=== PATIENT | female | born 2000 | race Caucasian/White ===

== ENCOUNTER 2023-02-03 19:02 | Emergency (ER) | payer MEDICAID ==
[~2023-02-03] VITALS: Ht 162.6 cm; Wt 90.8 kg
[~2023-02-03 19:02] MED LIST: ACET-1158 PO; SULF800T7 PO
[2023-02-03] MEDS ORDERED: ONDANSETRON ODT 4 MG TAB PO ONE (19:45)
[2023-02-03 20:25] LABS: Basophils # (auto) 0 10 ^3/uL (0-0.2); Basophils % (auto) 0.5 % (0.0-2.0); Eosinophils # (auto) 0.1 10 ^3/uL (0-0.8); Eosinophils % (auto) 0.9 % (0.0-7.0); Hematocrit 42.2 % (36.0-46.0); Hemoglobin 13.9 g/dL (12.2-16.2); Lymphocytes % (auto) 22.9 % (10.0-50.0); Mean Corpuscular Hemoglobin 29.7 pg (28.0-32.0); Mean Corpuscular Hgb Conc. 32.9 g/dL (32.0-36.0); Mean Corpuscular Volume 90.5 fL (80.0-100.0); Monocytes # (auto) 0.5 10 ^3/uL (0-1.3); Monocytes % (auto) 5.9 % (0.0-12.0); Neutrophils % (auto) 69.8 % (37.0-80.0); Nucleated Red Blood Cells % 0.1 %; Red Blood Cells 4.66 10^6/uL (4.0-5.20); Red Cell Distribution Width 15.2 % (11.8-14.3); White Blood Cell 8.5 10^3/uL (4.4-10.8)
[2023-02-03 20:41] LABS: Albumin 3.7 g/dL (3.4-5.0); BUN/Creatinine Ratio 15.2 (10.0-20.0); Calcium 9.3 mg/dL (8.5-10.1); Potassium 3.9 mmol/L (3.5-5.1)
[2023-02-03 20:44] LABS: Bilirubin, Total 0.5 mg/dL (0.2-1.0); Total Protein 7.5 g/dL (6.4-8.2)
[2023-02-04 00:30] VITALS: BP 121/65
== END 2023-02-04 23:48 | disposition still patient (30) ==
LOC: ER 19:02
DX: R10.30 Lower abdominal pain, unspecified (principal); R10.2 Pelvic and perineal pain; Z88.0 Allergy status to penicillin; Z88.6 Allergy status to analgesic agent; Z88.2 Allergy status to sulfonamides
CPT/HCPCS: 36415; 74176; 80053; 83690; 84702; 85025; 99284; Q0162

== ENCOUNTER 2025-02-17 17:21 | Emergency (ER) | payer MEDICAID ==
[~2025-02-17] VITALS: Ht 154.9 cm; Wt 90.4 kg
[~2025-02-17 17:21] MED LIST changes: -ACET-1158 PO; +ACET500T58 PO; +SULF800T23 PO; -SULF800T7 PO
[2025-02-17 18:49] LABS: Basophils # (auto) 0 10 ^3/uL (0-0.2); Basophils % (auto) 0.4 % (0.0-2.0); Eosinophils # (auto) 0 10 ^3/uL (0-0.8); Eosinophils % (auto) 0.5 % (0.0-7.0); Hematocrit 37.6 % (36.0-46.0); Hemoglobin 12.6 g/dL (12.2-16.2); Lymphocytes # (auto) 1.5 10 ^3/uL (0.4-5.4); Lymphocytes % (auto) 18.5 % (10.0-50.0); Mean Corpuscular Hemoglobin 29.8 pg (28.0-32.0); Mean Corpuscular Hgb Conc. 33.5 g/dL (32.0-36.0); Mean Corpuscular Volume 88.9 fL (80.0-100.0); Monocytes # (auto) 0.4 10 ^3/uL (0-1.3); Monocytes % (auto) 5.6 % (0.0-12.0); Neutrophils # (auto) 5.9 10 ^3/uL (1.6-8.6); Nucleated Red Blood Cells % 0.1 %; Platelet Count (auto) 489 10^3/uL (140-450); Red Blood Cells 4.23 10^6/uL (4.0-5.20); Red Cell Distribution Width 15.1 % (11.8-14.3); White Blood Cell 7.9 10^3/uL (4.4-10.8)
[2025-02-17 19:00] LABS: Urine Bacteria None Seen /hpf (None Seen)
[2025-02-17 19:01] LABS: Anion Gap 9 (5-15); Carbon Dioxide 27 mmol/L (20-31); Chloride 102 mmol/L (98-107); Potassium 4.4 mmol/L (3.5-5.1); Sodium 138 mmol/L (136-145)
[2025-02-17 19:07] LABS: Blood Urea Nitrogen 12 mg/dL (9-23); Glucose 79 mg/dL (74-106)
[2025-02-17 19:08] LABS: Calcium 10.8 mg/dL (8.7-10.4)
[2025-02-17 19:12] LABS: Urine Blood Negative /uL (Negative); Urine Clarity Clear (Clear); Urine Color Yellow (Yellow); Urine Protein, UAD Negative (Negative); Urine Specific Gravity 1.026 (1.001-1.035); Urine Squamous Epithelial Cell FEW /hpf (<5); Urine Urobilinogen Normal (Negative); Urine WBC 1 /HPF (0-5); Urine pH 6.5 (5.0-9.0)
--- NOTE | 2025-02-17 19:28 | DVH ---
INDICATION: Bilateral pelvic pain with left greater than right TECHNIQUE: Multiple real-time grayscale transabdominal sonographic images along with color and duplex Doppler of the uterus and ovaries were obtained. COMPARISON: None FINDINGS: The uterus measures 9.1 x 5.9 by 4.6 cm cm. The endometrial stripe measures 4.5 mm. The right ovary measures 3.6 x 2.4 x 1.9 cm. Right ovarian volume is 8.9 cc The left ovary measures 3.3 x 2.2 x 2.5 cm. Renal volume is 9.6 cc Subsequent color and duplex Doppler interrogation of the ovaries demonstrated symmetric vascular flow to both ovaries, though this does not exclude the possibility of torsion due to the dual blood suppl y. IMPRESSION: 1. Grossly unremarkable pelvic ultrasound. HS:Y
[2025-02-17] MEDS ORDERED: ACET500T58 PO (19:50)
--- NOTE | 2025-02-17 19:51 | ED.PDOC ---
General HPI Comments This patient is a pleasant but severely morbidly obese 45-year-old female who arrives the ED today for evaluation of central pelvic and left-sided pelvic pain that began four days ago and has continued. Patient states the pain has been intermittently sharp and crampy. Patient denies any current menses. Patient denies any history of ovarian cysts or uterine fibroids. Vital signs were stable on arrival. Chief Complaint: Abdominal Pain Time Seen by MD: 18:01 Reviewed notes: Nurses Notes Allergies: Coded Allergies: Penicillins (Verified Allergy, Unknown, 08/26/22) Home Meds Active Scripts Acetaminophen (Acetaminophen) 500 Mg Tab, 500 MG PO QIDP, #30 TAB 0 Refills Prov:SOHAN RDZ 08/26/22 Sulfamethoxazole W/Trimethopri (Trimethoprim/Sulfamethoxa) 1 Tab Tab, 1 TAB PO BID for 7 Days, #14 TAB 0 Refills Prov:SOHAN RDZ 08/26/22 Information Source: Patient Mode of Arrival: Ambulatory Severity: Moderate Timing: Days Duration: Since onset, Intermittent Prehospital treatment: None Onset: Spontaneous Symptoms: None History of: None Location: Suprapubic, Abdomen, Other (Central and left-sided lower pelvis) associated signs and symptoms: Abdominal Pain Past Medical History PAST MEDICAL HISTORY: Denies Surgical History: Denies all surgeries BEDSPREAD SEAMER History: No Pertinent BEDSPREAD SEAMER History Family History Family History: Reviewed,noncontributory to illness Social History Smoker: Non-Smoker, Other Alcohol: Occasionally Drugs: Denies Drug Use Lives In: Home Constitutional: denies: chills, diaphoresis, fatigue, fever, malaise, sweats, weakness, others EENTM: denies: blurred vision, double vision, ear bleeding, ear discharge, ear drainage, ear pain, ear ringing, eye pain, eye redness, hearing loss, mouth [place] n, mouth swelling, nasal discharge, nose bleeding, nose congestion, nose pain, photophobia, tearing, throat pain, throat swelling, voice changes, others Respiratory: denies: cough, hemoptysis, orthopnea, SOB at rest, shortness of breath, SOB with excertion, stridor, wheezing, others Cardiovascular: denies: chest pain, dizzy spells, diaphoresis, Dyspnea on exertion, edema, irregular heart beat, left arm pain, lightheadedness, palpitations, PND, syncope, others Gastrointestinal: reports: abdominal pain; denies: abdomen distended, blood streaked bowels, constipated, diarrhea, dysphagia, difficulty swallowing, hematemesis, melena, nausea, poor appetite, poor fluid intake, rectal bleeding, rectal pain, vomiting, others Genitourinary: denies: abnormal vagina bleeding, burning, dyspareunia, dysuria, flank pain, frequency, hematuria, incontinence, pain, , vagina discharge, urgency, others Neurological: denies: dizziness, fainting, headache, left sided numbness, left sided weakness, numbness, paresthesia, pre-existing deficit, right sided numbness, right sided weakness, seizure, speech problems, tingling, tremors, weakness, others Musculoskeletal: denies: back pain, gout, joint pain, joint swelling, muscle pain, muscle stiffness, neck pain, others Integumetry: denies: bruises, change in color, change in hair/nails, dryness, laceration, lesions, lumps, rash, wounds, others Allergic/Immunocompromised: denies: Difficulty Healing, Frequent Infections, Hives, Itching, others Hematologic/Lymphatic: denies: anemia, blood clots, easy bleeding, easy bruisin g, swollen glands, others Endocrine: denies: excessive hunger, excessive sweating, excessive thirst, excessive urination, flushing, intolerance to cold, intolerance to heat, unexplained weight gain, unexplained weight loss, others Psychiatric: denies: anxiety, bipolar disorder, depression, hopeless, panic disorder, schizophrenia, sleepless, suicidal, others Physical Exam General Appearance: Mild Distress (Moderate distress at time of evaluation due to pelvic pain concerns. Patient declined any medication while at the facility.), Normal HEENT: Normal ENT Inspection, Pharynx Normal, TMs Normal Neck: Full Range of Motion, Non-Tender, Normal, Normal Inspection Respiratory: Chest Non-Tender, Lungs Clear, No Accessory Muscle Use, No Respiratory Distress, Normal Breath Sounds Cardiovascular: No Edema, No JVD, No Murmur, No Gallop, Normal Peripheral Pul ses, Regular Rate/Rhythm Breast Exam: Deferred Gastrointestinal: Other (Diffuse bilateral lower abdominal/pelvic tenderness to palpation extending towards the left region. No definitive ovarian concerns. Difficult to assess due to body habitus.) Genitalia: Deferred Pelvic: Deferred Rectal: Deferred Extremities: No calf tenderness, Normal capillary refill, Normal inspection, N ormal range of motion, Non-tender, No pedal edema Neurologic: Alert, No Motor Deficits, Normal Affect, Normal Mood, No Sensory Deficits Cerebellar Function: Normal Reflexes: Normal Skin: Dry, Normal Color, Warm Lymphatic: No Adenopathy Was a procedure done? Was a procedure done?: No Differential Diagnosis Kidney stone (Female): N/A Urinary Problem (Female): Other (Electrolyte abnormality, sepsis, UTI, constipation, ovarian cyst, fibroids) X-Ray, Labs, Meds, VS Vital Signs Date Time Temp Pulse Resp B/P (MAP) Pulse Ox O2 Delivery O2 Flow Rate FiO2 02/17/25 18:03 97.7 86 18 93/31 (51) 95 97.7 Lab Test 02/17/25 19:00 02/17/25 18:30 Range/Units Urine Color Yellow Yellow Urine Clarity Clear Clear Urine pH 6.5 5.0-9.0 Urine Specific [place] 1.026 1.001-1.035 Urine Protein Negative Negative Urine Ketones Negative Negative Urine Blood Negative Negative /uL Urine Nitrite Negative Negative Urine Bilirubin Negative Negative Urine Urobilinogen Normal Negative mg/dL Urine Leukocyte Esterase Negative Negative /uL Urine RBC <1 0 - 4 /hpf Urine Microscopic WBC 1 0-5 /HPF Urine Squamous Epithelial Cells Few <5 /hpf Urine Bacteria None seen None Seen /hpf Urine Glucose Normal Normal mg/dL White Blood Count 7.9 4.4-10.8 10^3/uL Red Blood Count 4.23 4.0-5.20 10^6/uL Hemoglobin 12.6 12.2-16.2 g/dL Hematocrit 37.6 36.0-46.0 % Mean Corpuscular Volume 88.9 80.0-100.0 fL Mean Corpuscular Hemoglobin 29.8 28.0-32.0 pg Mean Corpuscular Hemoglobin Concent 33.5 32.0-36.0 g/dL Red Cell Distribution Width 15.1 H 11.8-14.3 % Platelet Count 489 H 140-450 10^3/uL Mean Platelet Volume 7.2 6.9-10.8 fL Neutrophils (%) (Auto) 75.0 37.0-80.0 % Lymphocytes (%) (Auto) 18.5 10.0-50.0 % Monocytes (%) (Auto) 5.6 0.0-12.0 % Eosinophils (%) (Auto) 0.5 0.0-7.0 % Basophils (%) (Auto) 0.4 0.0-2.0 % Neutrophils # (Auto) 5.9 1.6-8.6 10 ^3/uL Lymphocytes # (Auto) 1.5 0.4-5.4 10 ^3/uL Monocytes # (Auto) 0.4 0-1.3 10 ^3/uL Eosinophils # (Auto) 0 0-0.8 10 ^3/uL Basophils # (Auto) 0 0-0.2 10 ^3/uL Nucleated Red Blood Cells 0.1 % Sodium Level 138 136-145 mmol/L Potassium Level 4.4 3.5-5.1 mmol/L Chloride Level 102 98-107 mmol/L Carbon Dioxide Level 27 20-31 mmol/L Anion Gap 9 5-15 Blood Urea Nitrogen 12 9-23 mg/dL Creatinine 0.80 0.550-1.02 mg/dL Glomerular Filtration Rate Calc 105 >90 mL/min BUN/Creatinine Ratio 15.0 10.0-20.0 Serum Glucose 79 74-106 mg/dL Calcium Level 10.8 H 8.7-10.4 mg/dL X-Ray, Labs, Meds, VS Comment All studies performed in the ED were evaluated by me personally. Laboratories were unremarkable for any acute systemic process. Imaging studies were unremarkable for any pelvic concerns including a rule out of any ovarian cyst or fibroid concerns. Unknown as to the cause of the patient's pain concerns. Advised patient utilize Tylenol and or Motrin as needed for symptomatic relief. Time of 1ST Reevaluation: 19:49 Reevaluation 1ST: Unchanged Consultation: PCP Patient Education/Counseling: Diagnosis, Treatment Family Education/Counseling: Diagnosis, Treatment Departure 1 Departure Time of Disposition: 19:49 Impression: Primary Impression: Abdominal pain of unknown etiology Disposition: HOME / SELF CARE / HOMELESS Condition: Stable Additional Instructions: Advised patient utilize good hydration and healthy nutrition throughout illness event. Pain medication as needed. e-Prescriptions Acetaminophen (Acetaminophen) 500 Mg Tab 500 MG PO Q4HP PRN, #20 TAB Prov: MANUELMARY PAC 02/17/25 Discharged With: Self, Friend Critical Care Note Critical Care Time?: No Stability Stability form required: No Heart Score Heart Score: Heart Score Response (Comments) Value History N/A 0 EKG N/A 0 Age N/A 0 Risk Factors N/A 0 Troponin N/A 0 Total 0 MARY JACKSON PAC Feb 17, 2025 19:50
[2025-02-17 21:15] VITALS: BP 111/45; PULSE 89; RESP 17; TEMP 98; O2SAT 98
== END 2025-02-17 21:30 | disposition home or self-care (01) ==
LOC: ER 17:21
DX: R10.2 Pelvic and perineal pain (principal); Z88.0 Allergy status to penicillin
CPT/HCPCS: 36415; 76856; 80048; 81001; 85025

== ENCOUNTER 2025-08-08 07:04 | Emergency (ER) | payer MEDICAID ==
[~2025-08-08] VITALS: Ht 154.9 cm; Wt 90.4 kg
[2025-08-08 07:10] VITALS: TEMP 99.4
--- NOTE | 2025-08-08 07:57 | ED.PDOC ---
[facility] HPI Comments 25 year old female presents to the ED with a chief compliant of vaginal bleeding onset 1 day. Patient states she took 5 at home tests, were all positive, LMP was around June, P:2, has OBGYN appointment with Dr. Yanez tomorrow. Patient states she began experiencing vaginal spotting yesterday, woke up this morning experiencing cramping as well as heavier vaginal bleeding, with clots. Denies any fall, nausea, vomiting, vaginal discharge, dysuria, fever, chills, headache, dizziness. No other symptoms or modifying factors present at this time. Chief Complaint: Vaginal Bleed Time Seen by MD: 07:45 Reviewed Notes: Medications, Allergies Allergies: Coded Allergies: Penicillins (Verified Allergy, Unknown, 08/26/22) Home Meds Active Scripts Acetaminophen (Acetaminophen) 500 Mg Tab, 500 MG PO Q4HP PRN, #20 TAB Prov:MARY JACKSON 02/17/25 Acetaminophen (Acetaminophen) 500 Mg Tab, 500 MG PO QIDP, #30 TAB 0 Refills Prov:SOHAN RDZ 08/26/22 Sulfamethoxazole W/Trimethopri (Trimethoprim/Sulfamethoxa) 1 Tab Tab, 1 TAB PO BID for 7 Days, #14 TAB 0 Refills Prov:SOHAN RDZ 08/26/22 Information Source: Patient Mode of Arrival: Ambulatory Timing: Days Prehospital treatment: None Severity: Moderate Vaginal Discharge: None Vaginal Lesions: None Bleeding Quality: Bright Red, Clotted Vaginal Mass: None Onset Of Mass/Bleeding: Spontaneous Sexual Activity: Last Consensual Krupp: None Control: None History of: Current Symptoms of Possible : Missed Period Associated Signs and Symptoms: Vaginal Bleeding, Cramping Past Medical History PAST MEDICAL HISTORY: Denies Surgical History: Denies all surgeries INSIDE B2B SALES History: No Pertinent INSIDE B2B SALES History Family History Family History: Reviewed,noncontributory to illness Social History Smoker: Non-Smoker, Other Alcohol: Occasionally Drugs: Denies Drug Use Lives In: Home Constitutional: denies: chills, diaphoresis, fatigue, fever, malaise, sweats, weakness, others EENTM: denies: blurred vision, double vision, ear bleeding, ear discharge, ear drainage, ear pain, ear ringing, eye pain, eye redness, hearing loss, mouth pain, mouth swelling, nasal discharge, nose bleeding, nose congestion, nose pain, photophobia, tearing, throat pain, throat swelling, voice changes, others Respiratory: denies: cough, hemoptysis, orthopnea, SOB at rest, shortness of breath, SOB with excertion, stridor, wheezing, others Cardiovascular: denies: chest pain, dizzy spells, diaphoresis, Dyspnea on exertion, edema, irregular heart beat, left arm pain, lightheadedness, palpitations, PND, syncope, others Gastrointestinal: denies: abdomen distended, abdominal pain, blood streaked bowels, constipated, diarrhea, dysphagia, difficulty swallowing, hematemesis, melena, nausea, poor appetite, poor fluid intake, rectal bleeding, rectal pain, vomiting, others Genitourinary: reports: abnormal vagina bleeding, pain, ; denies: burning, dyspareunia, dysuria, flank pain, frequency, hematuria, incontinence, vagina discharge, urgency, others Neurological: denies: dizziness, fainting, headache, left sided numbness, left sided weakness, numbness, paresthesia, pre-existing deficit, right sided numbness, right sided weakness, seizure, speech problems, tingling, tremors, weakness, others Musculoskeletal: denies: back pain, gout, joint pain, joint swelling, muscle pain, muscle stiffness, neck pain, others Integumetry: denies: bruises, change in color, change in hair/nails, dryness, laceration, lesions, lumps, rash, wounds, others Allergic/Immunocompromised: denies: Difficulty Healing, Frequent Infections, Hives, Itching, others Hematologic/Lymphatic: denies: anemia, blood clots, easy bleeding, easy bruising, swollen glands, others Endocrine: denies: excessive hunger, excessive sweating, excessive thirst, excessive urination, flushing, intolerance to cold, intolerance to heat, unex plained weight gain, unexplained weight loss, others Psychiatric: denies: anxiety, bipolar disorder, depression, hopeless, panic disorder, schizophrenia, sleepless, suicidal, others All Other Systems: Reviewed and Negative Physical Exam General Appearance: Moderate Distress, Normal HEENT: Normal ENT Inspection, Pharynx Normal, TMs Normal Neck: Full Range of Motion, Non-Tender, Normal, Normal Inspection Respiratory: Chest Non-Tender, Lungs Clear, No Accessory Muscle Use, No Respiratory Distress, Normal Breath Sounds Cardiovascular: No Edema, No JVD, No Murmur, No Gallop, Normal Peripheral Pulses, Regular Rate/Rhythm Breast Exam: Deferred Gastrointestinal: No Organomegaly, Non Tender, No Pulsatile Mass, Normal Bowel Sounds, Soft Genitalia: Deferred Pelvic: Deferred Rectal: Deferred Extremities: No calf tenderness, Normal capillary refill, Normal inspection, Normal range of motion, Non-tender, No pedal edema Musculoskeletal : Apperance: Normal Neurologic: Alert, tool and die engineer II-XII nml as Tested, No Motor Deficits, Normal Affect, Normal Mood, No Sensory Deficits Cerebellar Function: Normal Reflexes: Normal Skin: Dry, Normal Color, Warm Peripheral Pulses: 3+ Radial (R), 3+ Radial (L) Lymphatic: No Adenopathy Was a procedure done? Was a procedure done?: No Differential Diagnosis (INSIDE [employer]2B SALES) Vaginal Bleeding: - Complete, - Incomplete, - Inevitable, - Missed, - Threatened X-Ray, Labs, Meds, VS Vital Signs Date Time Temp Pulse Resp B/P (MAP) Pulse Ox O2 Delivery O2 Flow Rate FiO2 08/08/25 07:58 77 18 110/63 (79) 96 08/08/25 07:58 77 18 98 Room Air 08/08/25 07:10 99.4 76 16 120/79 99 99.4 Lab Test 08/08/25 08:05 08/08/25 07:59 Range/Units Beta HCG, Quantitative 42.7 H 1.5-4.2 mIU/mL Urine Color Light-brown Yellow Urine Clarity Clear Clear Urine pH 7.5 5.0-9.0 Urine Specific [place] 1.013 1.001-1.035 Urine Protein Trace H Negative Urine Ketones Negative Negative Urine Blood 3+ H Negative /uL Urine Nitrite Negative Negative Urine Bilirubin Negative Negative Urine Urobilinogen Normal Negative mg/dL Urine Leukocyte Esterase Trace Negative /uL Urine RBC 247 0 - 4 /hpf Urine Microscopic WBC 7 H 0-5 /HPF Urine Squamous Epithelial Cells Few <5 /hpf Urine Bacteria None seen None Seen /hpf Urine Glucose Normal Normal mg/dL Patient alert. Came in because of vaginal bleeding. Vitals stable. Answering questions. Urinalysis shows UTI. Was given prescription of Keflex antibiotic. Ultrasound reveal early was told to follow up with blood draw imaging. Explained to the patient. Continue monitoring. Was told to follow up with her OBGYN. Was told to follow up with her primary care physician. Was told to come back if there is any problem. [address] [address] Ph: [phone] DIAGNOSTIC IMAGING Diagnostic Imaging Report : [id number] Signed PATIENT: YONG JOHNSON ACCT: [id number] UNIT: [id number] : 2000 LOC: ER ROOM / BED: / AGE / SEX: 25 / F ADM STATUS: REG ER SERVICE [id number] ORDERING PHYSICIAN: RHONDA MCCANN MD PROCEDURE(s): OB4US - OB ULTRASOUND COMP LESS 14WKS REASON: bleeding ORDER NUMBER(s): [id number], ACCESSION NUMBER(s): [id number] OB ULTRASOUND <14 WEEKS: HISTORY: bleeding TECHNIQUE: Multiple real-time grayscale sonographic images of the pelvis with duplex Doppler color flow, spectral and M-mode analysis. TRANSDUCERS: Transabdominal and transvaginal COMPARISON: US OB TRANS VAGINAL US on DOS: 08/08/25, US PELVIC on DOS: 02/17/25, US OB LIMITED on DOS: 08/10/24, US OB LIMITED on DOS: 06/16/24, US OB >14 WKS on DOS: 03/12/24 FINDINGS: The uterus measures 9.4 x 4.7 x 6.0 cm. Endometrium measures 1.5 cm. The cervix is not visualized Right ovary measures 3.0 x 1.8 x 1.9 cm with normal Doppler color flow. Left ovary measures 2.7 x 3.1 x 1.6 cm with normal Doppler color flow. Small cyst is present adjacent to the endometrial stripe measuring 0.3 cm; nonspecific. IMPRESSION: Thickened endometrium, without visualized gestational sac, pole or cardiac activity. Differential considerations include early, normal intrauterine , an anembryonic and spontaneous . Recommend corre lation with follow-up beta hCG levels. Repeat ultrasound could be performed if clinically indicated. ATED BY: TULIO MENARD MD DICTATED DATE/TIME: 08/08/25931 SIGNED BY: TULIO MENARD MD SIGNED DATE/TIME: 08/08/25931 CC: [place] [id number] Ph: [phone] DIAGNOSTIC IMAGING Diagnostic Imaging Report : [id number] Signed PATIENT: YONG JOHNSON ACCT: [id number] UNIT: [id number] : 2000 LOC: ER ROOM / BED: / AGE / SEX: 25 / F ADM STATUS: REG ER SERVICE 0000 ORDERING PHYSICIAN: RHONDA MCCANN MD PROCEDURE(s): OBTVG - OB TRANS VAGINAL US REASON: VAG BLEED ORDER NUMBER(s): [id number], ACCESSION NUMBER(s): [id number] OB ULTRASOUND <14 WEEKS: HISTORY: bleeding TECHNIQUE: Multiple real-time grayscale sonographic images of the pelvis with duplex Doppler color flow, spectral and M-mode analysis. TRANSDUCERS: Transabdominal and transvaginal COMPARISON: US OB TRANS VAGINAL US on DOS: 08/08/25, US PELVIC on DOS: 02/17/25, US OB LIMITED on DOS: 08/10/24, US OB LIMITED on DOS: 06/16/24, US OB >14 WKS on DOS: 03/12/24 FINDINGS: The uterus measures 9.4 x 4.7 x 6.0 cm. Endometrium measures 1.5 cm. The cervix is not visualized Right ovary measures 3.0 x 1.8 x 1.9 cm with normal Doppler color flow. Left ovary measures 2.7 x 3.1 x 1.6 cm with normal Doppler color flow. Small cyst is present adjacent to the endometrial stripe measuring 0.3 cm; nonspecific. IMPRESSION: Thickened endometrium, without visualized gestational sac, pole or cardiac activity. Differential considerations include early, normal intrauterine , an anembryonic and spontaneous . Recommend correlation with follow-up beta hCG levels. Repeat ultrasound could be performed if clinically indicated. ATED BY: TULIO MENARD MD DICTATED DATE/TIME: 08/08/25931 SIGNED BY: TULIO MENARD MD SIGNED DATE/TIME: 08/08/25931 CC: Time of 1ST Reevaluation: 08:15 Reevaluation 1ST: Unchanged Patient Education/Counseling: Diagnosis, Treatment, Prognosis Family Education/Counseling: No Family Present Departure 1 Departure Time of Disposition: 08:21 Impression: Primary Impression: Vaginal bleeding affecting early Additional Impression: UTI (urinary tract infection) Qualified Codes: N30.01 - Acute cystitis with hematuria Disposition: HOME / SELF CARE / HOMELESS Condition: Good e-Prescriptions Cephalexin (KEFLEX CAPSULE) 250 Mg Cp 250 MG PO QID for 5 Days, #20 BOTTLE Prov: RHONDA MCCANN MD 08/08/25 Discharged With: Self Critical Care Note Critical Care Time?: No Stability Stability form required: No Heart Score Heart Score: Heart Score Response (Comments) Value History N/A 0 EKG N/A 0 Age N/A 0 Risk Factors N/A 0 Troponin N/A 0 Total 0 I personally scribed for RHONDA MCCANN MD ([email or web address]) on 08/08/25 at 07:57. Electronically submitted by Jennie Diego ([email or web address]). I personally scribed for RHONDA MCCANN MD ([email or web address]) on 08/08/25 at 10:16. Electronically submitted by Jennie Diego ([email or web address]). RHONDA MCCANN MD Aug 08, 2025 07:57
[2025-08-08 07:58] VITALS: BP 110/63; PULSE 77; RESP 18; O2SAT 98
[2025-08-08 08:07] LABS: Urine Protein, UAD TRACE (Negative)
--- NOTE | 2025-08-08 09:34 | DVH ---
OB ULTRASOUND <14 WEEKS: HISTORY: bleeding TECHNIQUE: Multiple real-time grayscale sonographic images of the pelvis with duplex Doppler color f low, spectral and M-mode analysis. TRANSDUCERS: Transabdominal and transvaginal COMPARISON: US OB TRANS VAGINAL US on DOS: 08/08/25, US PELVIC on DOS: 02/17/25, US OB LIMITED on DOS: 08/10/24, US OB LIMITED on DOS: 06/16/24, US OB >14 WKS on DOS: 03/12/24 FINDINGS: The uterus measures 9.4 x 4.7 x 6.0 cm. Endometrium measures 1.5 cm. The cervix is not visualized Right ovary measures 3.0 x 1.8 x 1.9 cm with normal Doppler color flow. Left ovary measures 2.7 x 3.1 x 1.6 cm with normal Doppler color flow. Small cyst is present adjacent to the endometrial stripe measuring 0.3 cm; nonspecific. IMPRESSION: Thickened endometrium, without visualized gestational sac, pole or cardiac activity. Diff erential considerations include early, normal intrauterine , an anembryonic and sp ontaneous . Recommend correlation with follow-up beta hCG levels. Repeat ultrasound could be performed if clinically indicated.
[2025-08-08] MEDS ORDERED: CEPH250C PO (10:46)
== END 2025-08-08 11:01 | disposition home or self-care (01) ==
LOC: ER 07:04
DX: O20.9 Hemorrhage in early pregnancy, unspecified
CPT/HCPCS: 36415; 76801; 76817; 81001; 84702